=== PATIENT | male | born 1970 | race Caucasian/White ===

== ENCOUNTER → 2017-10-15 | Outpatient (CLI) | payer OTHER | END | disposition home or self-care (01) | LOC: LABWHC1 14:43 | PROVIDERS: ATTEND Family Medicine | DX: Z13.88 Encounter for screening for disorder due to exposure to contaminants (principal) | CPT/HCPCS: 36415; 83655 ==

== ENCOUNTER → 2020-01-30 | Outpatient (CLI) | payer BC | END | disposition home or self-care (01) | LOC: LABWHC1 08:59 | PROVIDERS: ATTEND Family Medicine | DX: Z03.818 Encounter for observation for suspected exposure to other biological agents ruled out (principal) | CPT/HCPCS: U0003; C9803 ==

== ENCOUNTER 2022-07-17 12:52 | Emergency (ER) | payer BC ==
[2022-07-17 13:13] VITALS: BP 136/91; PULSE 96; RESP 16; TEMP 98
--- NOTE | 2022-07-17 13:44 | US ---
EXAMINATION TYPE: US venous doppler duplex LE LT DATE OF EXAM: 07/17/2022 1:36 PM COMPARISON: NONE CLINICAL HISTORY: PAIN NUMBNESS FOR 24 HR HX FACTOR 5 LAYDEN. Pt states numbness left leg that seems to have lessened SIDE PERFORMED: Left TECHNIQUE: The lower extremity deep venous system is examined utilizing real time linear array sonog naseem with graded compression, doppler sonography and color-flow sonography. VESSELS IMAGED: Common Femoral Vein Deep Femoral Vein Greater Saphenous Vein * Femoral Vein Popliteal Vein Small Saphenous Vein * Proximal Calf Veins (* superficial vessels) Left Leg: Negative for DVT Grayscale, color doppler, spectral doppler imaging performed of the deep veins of the left lower extr emity. There is normal flow, compressibility, vascular waveforms. IMPRESSION: No ultrasound evidence for acute DVT in the left lower extremity.
--- NOTE | 2022-07-17 13:56 | ED ---
General Adult HPI - General Source: patient, RN notes reviewed Mode of arrival: ambulatory Limitations: no limitations <Thong Carmichael - Last Filed: 07/17/22 13:55> <Gallo Sequeira - Last Filed: 07/17/22 23:29> - General Chief complaint: Neuro Symptoms/Deficit Stated complaint: L Leg Numbness Time Seen by Provider: 07/17/22 13:55 - History of Present Illness Initial comments: 51-year-old male presents emergency department well left leg pain. Patient states he had some numbness, shooting pain down his left leg. 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 Patient states that he became very anxious his heart was racing and he felt short of breath at that time. He states all the symptoms have resolved. He denies any chest pain headache or dizziness. Patient denies any associated weaknessin her back pain denies any bowel bladder incontinence or retention. (Thong Carmichael) Patient originally seen as a quick note. Does have a history of clotting disorders on blood thinners. Complaining of generalized left leg numbness as well as pain. Now localized to the posterior aspect of the leg. States she does not have a history of blood clots but is at increased risk and is empirically on blood thinners for these. States he did have an episode where when this occurred, was having some tachycardia as well as some mild dyspnea on which resolved. No persistent symptoms. Was initially seen as a quick no. He is compliant with medications.Denies urinary or bowel incontinence. Denies paralysis of the left leg. Denies saddle anesthesias. (Gallo Sequeira) - Related Data Allergies Allergy/AdvReac Type Severity Reaction Status Date / Time No Known Allergies Allergy Verified 07/17/22 13:13 Review of Systems ROS Other: All systems not noted in ROS Statement are negative. <Thong Carmichael - Last Filed: 07/17/22 13:55> ROS Other: All systems not noted in ROS Statement are negative. <Gallo Sequeira - Last Filed: 07/17/22 23:29> ROS Statement: Those systems with pertinent positive or pertinent negative responses have been documented in the HPI. Past Medical History Additional Past Medical History / Comment(s): FACTOR 5 LADEN History of Any Multi-Drug Resistant Organisms: None Reported Past Surgical History: Adenoidectomy, Tonsillectomy Past Psychological History: No Psychological Hx Reported Smoking Status: Current every day smoker Past Alcohol Use History: Occasional Past Drug Use History: Marijuana <Thong Carmichael - Last Filed: 07/17/22 13:55> General Exam Limitations: no limitations <Thong Carmichael - Last Filed: 07/17/22 13:55> <Gallo Sequeira - Last Filed: 07/17/22 23:29> - General Exam Comments Initial Comments: Visual Physical Exam Vital signs reviewed General: Well-appearing, nontoxic, no acute distress. Head: Normocephalic, atraumatic Eyes: PERRLA, EOMI ENT: Airway patent Chest: Nonlabored breathing Skin: No visual rash, normal skin tone Neuro: Alert and oriented 3 Musculoskeletal: No gross abnormalities (Thong Carmichael) General: Appears in no acute distress. HEAD: Normal with no signs of head trauma. EYES: PERRLA, EOMI, conjunctiva normal, no discharge. ENT: Hearing grossly intact, normal oropharynx. RESPIRATORY: Clear breath sounds bilaterally. No wheezes, rales, or rhonchi. C/V: Regular rate and rhythm. S1 and S2 auscultated, no edema, peripheral pulses 2+ and intact throughout ABD: Abd is soft, nontender, nondistended EXT: Normal range of motion, no obvious deformity SKIN: No rashes or lesions observed on exposed skin. NEURO: Alert and oriented x 4. Cranial nerves II-XII intact. No focal sensory or strength deficits. Very subtle left foot numbness. Ambulates without issues. (Gallo Sequeira) Course Vital Signs 07/17/22 13:10 Temperature 98 F Pulse Rate 96 Respiratory 16 Rate Blood Pressure 136/91 O2 Sat by Pulse 99 Oximetry Medical Decision Making <Gallo Sequeira - Last Filed: 07/17/22 23:29> - Medical Decision Making Was pt. sent in by a medical professional or institution (, PA, STEWARD DISHWASHER, urgent care, hospital, or halfway...) When possible be specific @ -No Did you speak to anyone other than the patient for history (EMS, parent, family, police, friend...)? What history was obtained from this source @ -No Did you review nursing and triage notes (agree or disagree)? Why? @ -I reviewed and agree with nursing and triage notes Were old charts reviewed (outside hosp., previous admission, EMS record, old EKG, old radiological studies, urgent care reports/EKG's, halfway records)? Report findings @ -No old charts were reviewed Differential Diagnosis (chest pain, altered mental status, abdominal pain women, abdominal pain men, vaginal bleeding, weakness, fever, dyspnea, syncope, headache, dizziness, GI bleed, back pain, seizure, CVA, palpatations, mental health, musculoskeletal)? @ -DVT, CVA, muscle strain, muscle sprain, or back injury. This list is not all-inclusive. EKG interpreted by me (3pts min.). @ -None done X-rays interpreted by me (1pt min.). @ -Lumbar spine x-ray unremarkable with no obvious deformities. CT interpreted by me (1pt min.). @ -CT brain shows no obvious intracranial process. U/S interpreted by me (1pt. min.). @ -DVT ultrasound interpreted by radiology negative for DVT. What testing was considered but not performed or refused? (CT, X-rays, U/S, labs)? Why? @ -None What meds were considered but not given or refused? Why? @ -None Did you discuss the management of the patient with other professionals (professionals i.e. , PA, STEWARD DISHWASHER, lab, RT, psych nurse, social media job titles, radiologist chief of breast imaging, teacher, senior administrative services officer, casey saw operator)? Give summary @ -No Was smoking cessation discussed for >3mins.? @ -No Was critical care preformed (if so, how long)? @ -No Were there social determinants of health that impacted care today? How? (Homelessness, low income, unemployed, alcoholism, drug addiction, transportation, low edu. Level, literacy, decrease access to med. care, detention, rehab)? @ -No Was there de-escalation of care discussed even if they declined (Discuss DNR or withdrawal of care, Hospice)? DNR status @ -No What co-morbidities impacted this encounter? (DM, HTN, Smoking, COPD, CAD, Cancer, CVA, ARF, Chemo, Hep., AIDS, mental health diagnosis, sleep apnea, morbid obesity)? @ -History of clotting disorder on blood thinners. Was patient admitted / discharged? Hospital course, mention meds given and route, prescriptions, significant lab abnormalities, going to OR and other pertinent info. @ -Based on the patient's presentation and physical exam, as over one day of left leg pain and numbness. Appears to be paresthesias. Currently only has foot paresthesias. No other acute complaints at this time. Exam unremarkable. Vital signs within acceptable limits. Imaging including ultrasound for DVT, CT brain for CVA, lumbar spine x-ray for injury are negative. No red flag signs concerning for cauda equina syndrome. I did discuss with the patient, and he is feeling improved. He really without difficulty. He will be discharged home at this time with strict return precautions. He was in agreement this plan. I instructed the patient to follow up with their PCP in the next 1-3 days. I explained that the patient should return to the emergency department if they experience any worsening symptoms. Strict return precautions were discussed with the patient. The patient expressed understanding of these instructions. I answered all questions that the patient had. The patient was discharged home in good condition with their prescriptions and follow up information. Undiagnosed new problem with uncertain prognosis? @ -No Drug Therapy requiring intensive monitoring for toxicity (Heparin, Nitro, Insulin, Cardizem)? @ -No Were any procedures done? @ -No Diagnosis/symptom? @ -Left leg paresthesias, pain, resolved Acute, or Chronic, or Acute on Chronic? @ -Acute Uncomplicated (without systemic symptoms) or Complicated (systemic symptoms)? @ -Uncomplicated Side effects of treatment? @ -No Exacerbation, Progression, or Severe Exacerbation? @ -No Poses a threat to life or bodily function? How? (Chest pain, [place], NH, pneumonia, PE, COPD, DKA, ARF, appy, cholecystitis, CVA, Diverticulitis, Homicidal, Suicidal, threat to staff... and all critical care pts) @ -No (Gallo Sequeira) Disposition <hTong Carmichael - Last Filed: 07/17/22 13:55> Is patient prescribed a controlled substance at d/c from ED?: No Time of Disposition: 16:30 <Gallo Sequeira - Last Filed: 07/17/22 23:29> Clinical Impression: Left leg paresthesias Disposition: HOME SELF-CARE Condition: Good Instructions (If sedation given, give patient instructions): Paresthesia (ED) Referrals: Armando Mcgee MD [Primary Care Provider] - 1-2 days
--- NOTE | 2022-07-17 14:42 | XR ---
EXAMINATION TYPE: XR lumbosacral spine min 4V DATE OF EXAM: 07/17/2022 CLINICAL HISTORY: Low back pain. Numbness into left leg for 24 hours. TECHNIQUE: Frontal, lateral, and oblique images of the lumbar spine are obtained. COMPARISON: None. FINDINGS: There are 5 lumbar type vertebral bodies identified. The lumbar spine shows satisfactory alignment without evidence of acute fracture or dislocation. Vertebral body heights and disk space he ights are within normal limits. The oblique images appear within normal limits. The overlying soft tissue appears unremarkable. IMPRESSION: As above. MRI more sensitive to evaluate for possible radiculopathy symptoms.
--- NOTE | 2022-07-17 16:04 | CT ---
EXAMINATION TYPE: CT brain wo con DATE OF EXAM: 07/17/2022 HISTORY: NUMBNESS IN LEGS CT DLP: 1145.4 mGycm. Automated Exposure Control for Dose Reduction was Utilized. TECHNIQUE: CT scan of the head is performed without contrast. COMPARISON: None. FINDINGS: There is no acute intracranial hemorrhage or midline shift identified. Ventricles and sul ci are within normal limits in size for patient's age. Mccall-white matter differentiation is preserved . Patchy soft tissue density consistent with cerumen in the right external auditory canal axial image 6. Some patchy fluid right aspect of the left sphenoid sinus axial image 9. Correlate clinically to exclude mild acute sinusitis. Nasal septum is deviated to left of midline. Globes are intact bilatera lly. IMPRESSION: No acute intracranial hemorrhage or midline shift. No significant finding to account for patient's clinical symptoms.
== END 2022-07-17 16:49 | disposition home or self-care (01) ==
LOC: EC 12:52
DX: R20.2 Paresthesia of skin (principal); F17.200 Nicotine dependence, unspecified, uncomplicated; F12.90 Cannabis use, unspecified, uncomplicated
CPT/HCPCS: 70450; 72110; 99284

== ENCOUNTER → 2024-11-09 | Outpatient (CLI) | payer BC ==
--- NOTE | 2024-11-09 08:02 | US ---
EXAMINATION TYPE: US abdomen limited DATE OF EXAM: 11/09/2024 COMPARISON: NONE CLINICAL INDICATION: Male, 53 years old with history of R63.4 ABNORMAL WEIGHT LOSS R19.7 DIARRHEA, R7 3.03; TECHNIQUE: Grayscale and color Doppler imaging of the right upper quadrant was performed. FINDINGS: EXAM MEASUREMENTS: Liver Length: 17.0 cm, normal <15.5 cm Gallbladder Wall: 0.2 cm CBD: 0.3 cm Right Kidney: 11.2 x 5.4 x 5.1 cm Pancreas: visualized portions wnl, limited by overlying midline bowel gas Liver: wnl Gallbladder: wnl Evidence for sonographic Davenport's sign: no CBD: visualized portions wnl, limited by overlying bowel gas Right Kidney: Unremarkable IMPRESSION: 1. [facility] Laurie Bennett, , 11/09/2024 8:00 AM
== END | disposition home or self-care (01) ==
LOC: RADUSWWP 06:50
PROVIDERS: ATTEND Family Medicine
DX: R16.0 Hepatomegaly, not elsewhere classified (principal); R63.4 Abnormal weight loss; R19.7 Diarrhea, unspecified; R73.03 Prediabetes
CPT/HCPCS: 76705